=== PATIENT | male | born 1980 | race African-American/Black ===

== ENCOUNTER 2020-08-02 16:00 | Emergency (ER) | payer SELFPAY ==
[2020-08-02 16:05] VITALS: BP 154/108; PULSE 76; RESP 18; TEMP 36.9; O2SAT 99; BMI 33.2
--- NOTE | 2020-08-02 18:47 | ED_ITS ---
HPI - Back Pain/Injury General: Chief Complaint: Back Pain/Injury Stated Complaint: SEVERE BACK PAIN, CANNOT WALK Time Seen by Provider: 08/02/20 18:47 History of Present Illness: HPI Narrative: Patient is a 40-year-old male comes to the ED with acute on chronic lower back pain. Patient says symptoms started last night. He says the pain starts in his lower back and then radiates down into the left leg. Denies any injury to cause acute pain says he gets back pain that flares up like this on a lot of times depending on the weather. He has had pain like this in the past and he usually gets treated with some muscle relaxers steroids and meloxicam. Denies any bladder or bowel incontinence, pelvic anesthesia or any weakness to lower extremities. Associated symptoms: Deny abdominal pain, chills, dysuria, fatigue, fever(s), hematuria, nausea or vomiting Review of Systems Const: Denies: fever(s), chills or fatigue Eyes: Denies: change in vision or eye discomfort ENMT: Denies: throat pain, odynophagia, nasal discharge or nasal congestion Card: Denies: chest pain, palpitations, edema, swelling of feet/ankles, dyspnea on exertion or orthopnea Resp: Denies: dyspnea, productive cough or non-productive cough GI: Denies: abdominal pain, nausea, vomiting, diarrhea, constipation or hematochezia : Denies: flank pain, difficulty urinating, dysuria or hematuria Musc: Reports: back pain (Lower back pain acute on chronic. Pain radiating down left leg.); Denies: neck pain or extremity swelling Skin/Breast: Denies: rash or new lesions Neuro: Denies: headache(s), numbness in extremities or weakness in extremities Physical Exam Const: COMMON NORMALS: no acute distress, patient oriented x3 and alert GENERAL APPEARANCE: cooperative and comfortable HENMT: COMMON NORMALS: normocephalic HEAD & SCALP: normocephalic MOUTH: Normal oral and palatal mucosa present THROAT: posterior oropharynx normal and uvula midline Neck/C-Spine: COMMON NORMALS: supple GENERAL: Yes normal visual inspection Resp: COMMON NORMALS: normal respiratory effort, No retractions, No use of accessory muscles and clear to auscultation bilaterally AUSCULTATION: clear to auscultation bilaterally Cardio: COMMON NORMALS: regular rate, regular rhythm, S1 normal heart sound present, S2 normal heart sound present, No gallops present (Cardio), No clicks present (Cardio), No murmurs present (Cardio) and Peripheral pulses 2+ throughout RATE: regular rate RHYTHM: regular rhythm HEART SOUNDS: S1 normal heart sound present and S2 normal heart sound present PERIPHERAL PULSES: Peripheral pulses 2+ throughout GI: COMMON NORMALS: Normal to inspection, nondistended, normoactive bowel sounds present, Soft to palpation, non-tender and no masses PALPATION: Yes Soft to palpation : COMMON NORMALS: Yes no CVA tenderness BLADDER/KIDNEY EXAM: Yes no CVA tenderness Back/Pelvis: COMMON NORMALS: no CVA tenderness LUMBAR SPINE/LOWER BACK: Yes pain with ROM, No lumbar spinal tenderness and Yes paraspinal muscle tenderness Extremity: COMMON NORMALS: normal to inspection Neuro: COMMON NORMALS: patient oriented x3 and moves all extremities SENSORIUM/ORIENTATION: Yes alert Skin: GENERAL SKIN EXAM: dry skin Course Vital Signs: Vital signs: Vital Signs Temperature 98.5 F 08/02/20 16:05 Pulse Rate 70 08/02/20 19:27 Respiratory Rate 18 08/02/20 19:27 Blood Pressure 148/94 08/02/20 19:27 Pulse Oximetry 100 08/02/20 19:27 MDM - Back Pain/Injury MDM Narrative: Medical decision making narrative: Patient is a 40-year-old male comes to the ED with acute on chronic lower back pain. Denies any acute injury to cause pain. He says he has got pain radiating down left leg. Patient has no cauda equina symptoms. He was given dose of Toradol, Solu-Medrol and Norflex while here in the ED. Diagnosis of lumbar radiculopathy and discharged with a prescription for meloxicam, methylprednisolone and muscle relaxer. Return to ED precautions given. Follow-up with PCP in 7 to 10 days. Patient is to agree with plan. Discharge Plan Discharge Patient Disposition: Home Clinical Impression: Lumbar radiculopathy Condition: Stable Prescriptions: New Medrol (Kervin) 4 mg tablets,dose pack See Rx Instructions .ROUTE .COMPLEX Qty: 21 RF: 0 meloxicam 7.5 mg tablet 7.5 mg PO DAILY Qty: 30 RF: 0 Discharge Orders: Discharge ED (Routine); Ordered 08/02/20 Ordered By: Oswaldo Phipps Discharge Diet: Regular Discharge Activity: Increase activity as tolerated Patient Instructions: Diazepam (By mouth), Lumbar Radiculopathy (ED) Activity Restrictions/Additional Instructions: Follow-up with medical provider as directed in 7 to 10 days for reevaluation. Take medications as prescribed. Number the muscle relaxer prescribed can cause some drowsiness side effect so take at night before bed. If you are going to take during the day use with caution. Apply cold pack or heat on lower back, stretch daily and massage lower back muscles that help with symptoms. Return to the ER or your medical provider if condition worsens. Please read and understand discharge instructions. If any questions, please ask. Stand Alone Forms: Work/School Release Coding Level of Care Code ED Butter Grader for Tayla Prajapati Exam Comprehensive
[2020-08-02] MEDS: ketorolac 60 mg/2 mL INJ IM (19:08)
[2020-08-02] MEDS: orphenadrine 30 mg/mL Inj 2 mL 60 MG IM (19:08)
[2020-08-02 19:27] VITALS: BP 148/94; PULSE 70; RESP 18; O2SAT 100
== END 2020-08-02 19:28 | disposition home or self-care (01) ==
PROVIDERS: Emergency Provider Physician Assistant
DX: M54.16 Radiculopathy, lumbar region (principal)
CPT/HCPCS: 12345; 96372; 99281; 99283; J1885; J2360; J2930

== ENCOUNTER → 2021-06-30 15:18 | Outpatient (BNVA) | payer OTHER, SELFPAY | PROVIDERS: Visit Provider Nurse Practitioner Family | DX: Z20.822 Contact with and (suspected) exposure to COVID-19 (principal) | CPT/HCPCS: 87635 ==

== ENCOUNTER 2022-07-10 14:28 | Emergency (ER) | payer OTHER, SELFPAY ==
[2022-07-10 14:32] VITALS: BP 121/91; PULSE 80; RESP 16; TEMP 36.6; O2SAT 100; BMI 39.1
--- NOTE | 2022-07-10 15:02 | XRR_ITS ---
PROCEDURE INFORMATION: Exam: XR Chest Exam date and time: 07/10/2022 3:37 PM Age: 42 years old Clinical indication: Cough TECHNIQUE: Imaging protocol: Radiologic exam of the chest. Views: 1 view. COMPARISON: No relevant prior studies available. FINDINGS: Lungs: Unremarkable. No consolidation. Pleural spaces: Unremarkable. No pleural effusion. No pneumothorax. Heart/Mediastinum: Unremarkable. No cardiomegaly. Bones/joints: Unremarkable. XR/XR chest 1V portable [id number] IMPRESSION: No acute findings.
--- NOTE | 2022-07-10 15:45 | W.ED.GENADLT ---
Documented by User: Melany Rodriguez 07/11/22 08:54 HPI - General Adult General: Chief complaint: General Medical Stated complaint: Pain on left side, no strength Time Seen by Provider: 07/10/22 15:39 History of Present Illness: Pt has been unwell x 2 weeks, weak and flu like symptoms Associated symptoms: Reports dyspnea, headache(s) and malaise Review of Systems General: Reports: 10 or more systems reviewed and unremarkable except in HPI and below Const: Reports: fever(s), chills, body aches, fatigue, malaise and daytime sleepiness Resp: Reports: dyspnea, productive cough, pain on inspiration and chest congestion Musc: Reports: extremity pain (left arm ) and muscle weakness Neuro: Reports: headache(s) and weakness in extremities PFSH ED PFSH: Medical History No pertinent past medical history Surgical History No pertinent past surgical history Physical Exam Const: COMMON NORMALS: no acute distress, patient oriented x3, no limitations and alert GENERAL APPEARANCE: cooperative and comfortable ORIENTATION/CONSCIOUSNESS: Yes awake, Yes oriented to person, Yes oriented to place and Yes oriented to time HENMT: COMMON NORMALS: normocephalic, atraumatic, external ears normal, EAC's normal, TM's normal bilaterally and Normal external nose present HEAD & SCALP: normal to inspection, normocephalic and atraumatic FACE & SINUS: normal facial exam, sinuses nontender and face symmetric NOSE: Normal external nose present, Normal nares present and No nasal discharge present EXTERNAL EAR: Yes external ears normal EXTERNAL AUDITORY CANAL: EAC's normal TYMPANIC MEMBRANE: TM's normal bilaterally MOUTH: Normal oral and palatal mucosa present, lip normal and tongue normal THROAT: posterior oropharynx normal, tonsils normal and uvula midline Eye: COMMON NORMALS: Equal, round and reactive pupils present, EOMs intact bilaterally and conjunctivae normal GENERAL EYE: appearance normal, both eyes and all related structures and normal light reflex EYELID: eyelids normal CONJUNCTIVA: Yes conjunctivae normal PUPIL: Yes Equal, round and reactive pupils present EOM: Yes EOM abnormal DIRECT OPHTHALMOSCOPY: Yes normal light reflex Neck/C-Spine: COMMON NORMALS: full ROM, no lymphadenopathy, supple, no meningeal signs, no JVD and Thyroid normal GENERAL: Yes normal visual inspection THYROID: Thyroid normal CERVICAL SPINE: Yes cervical ROM normal and Yes normal cervical lordosis Lymph: LYMPHATIC: no lymphadenopathy noted Chest: COMMONS NORMALS: normal inspection of the chest and normal palpation of entire chest wall Resp: COMMON NORMALS: normal respiratory effort, No retractions and clear to auscultation bilaterally AUSCULTATION: clear to auscultation bilaterally Cardio: COMMON NORMALS: no JVD, regular rate, regular rhythm, S1 normal heart sound present, S2 normal heart sound present, No gallops present (Cardio), No clicks present (Cardio), No murmurs present (Cardio), No rub (Cardio) and Peripheral pulses 2+ throughout RATE: regular rate RHYTHM: regular rhythm HEART SOUNDS: S1 normal heart sound present and S2 normal heart sound present PERIPHERAL PULSES: Peripheral pulses 2+ throughout GI: COMMON NORMALS: Normal to inspection, nondistended, normoactive bowel sounds present, Soft to palpation, non-tender and no masses PALPATION: Yes Soft to palpation : COMMON NORMALS: Yes no CVA tenderness BLADDER/KIDNEY EXAM: Yes no CVA tenderness Back/Pelvis: COMMON NORMALS: no CVA tenderness, thoracic and lumbar spine normal to inspection, no thoracic nor lumbar tenderness and thoraco-lumbar ROM normal Extremity: COMMON NORMALS: normal to inspection, full ROM, capillary refill normal, no joint enlargement, no clubbing, cyanosis or edema, no calf tenderness and no pedal edema GENERAL: Yes normal exam except as noted Neuro: COMMON NORMALS: patient oriented x3, moves all extremities, no focal motor deficits, no sensory deficits noted and gait normal SENSORIUM/ORIENTATION: Yes alert, Yes oriented to person, Yes oriented to place and Yes oriented to time MENINGEAL SIGNS: Yes no meningeal signs Psych: COMMON NORMALS: mental status grossly normal, Normal thought process present, cooperative, normal affect, speech normal and activity/motor behavior normal SPEECH: Yes normal speech THOUGHT PROCESS: Normal thought process present Skin: COMMON NORMALS: no rashes or lesions noted, no wounds and turgor normal GENERAL SKIN EXAM: no rashes or lesions noted and turgor normal Course ED course: Pt presents to ER with complaints of feeling unwell x 2 weeks. He states he feels weak and has intermittent flu like symptoms. CXR ordered and covid swab. Reevaluation(s): Reevaluation #1: CXR is negative. Awaiting swabs. Pt also notes pain radiating down left arm. He was recently exposed to Flu A and based off of his symptoms I want to ensure no cardiomyopathy post viral illness is occuring. 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 Vital Signs: Vital signs: Vital Signs Temperature 97.9 F 07/10/22 14:32 Pulse Rate 74 07/10/22 18:57 Respiratory Rate 18 07/10/22 18:57 Blood Pressure 141/62 07/10/22 18:57 Pulse Oximetry 98 07/10/22 18:57 Oxygen Delivery Me thod 07/10/22 14:32 MDM - General Adult Lab Data 07/10/22 17:33 07/10/22 17:33 Radiology Impressions Chest X-Ray 07/10/22 15:02 IMPRESSION: No acute findings. Laboratory Results WBC 5.6 10^3/uL (4.0-10.0) 07/10/22 17:33 RBC 6.08 10^6/uL (4.1-5.3) H 07/10/22 17:33 Hgb 16.6 g/dL (11.7-16.6) 07/10/22 17:33 Hct 50.7 % (42.0-52.0) 07/10/22 17:33 MCV 83.4 fl (80-94) 07/10/22 17:33 MCH 27.3 pg (28.0-34.0) L 07/10/22 17:33 MCHC 32.7 g/dL (30.0-36.0) 07/10/22 17:33 RDW 13.5 % (12.1-15.1) 07/10/22 17:33 Plt Count 208 10^3/cmm (130-400) 07/10/22 17:33 MPV 10.6 fL (7.4-10.4) H 07/10/22 17:33 Neut % (Auto) 48.2 % 07/10/22 17:33 Lymph % (Auto) 38.4 % 07/10/22 17:33 Clarke % (Auto) 11.7 % 07/10/22 17:33 Eos % (Auto) 1.1 % 07/10/22 17:33 Baso % (Auto) 0.4 % 07/10/22 17:33 Neut # (Auto) 2.71 10^3/uL (1.8-7.7) 07/10/22 17:33 Lymph # (Auto) 2.2 10^3/uL (0.8-4.8) 07/10/22 17:33 Clarke # (Auto) 0.7 10^3/uL (0.2-0.9) 07/10/22 17:33 Eos # (Auto) 0.1 10^3/uL (0.0-0.8) 07/10/22 17:33 Baso # (Auto) 0.0 10^3/uL (0.0-0.1) 07/10/22 17:33 Nucleated RBC % (auto) 0 % 07/10/22 17:33 Nucleated RBCs # 0.0 /100WBC 07/10/22 17:33 Sodium 129 mmol/L (136-145) L 07/10/22 17:33 Potassium 3.7 mmol/L (3.5-5.1) 07/10/22 17:33 Chloride 93 mmol/L (98-107) L 07/10/22 17:33 Carbon Dioxide 26 mmol/L (22-29) 07/10/22 17:33 Anion Gap 13.7 (5-19) 07/10/22 17:33 BUN 9 mg/dL (6-20) 07/10/22 17:33 Creatinine 0.8 mg/dL (0.7-1.2) 07/10/22 17:33 GFR Calculation 128.3 mL/min (90-130) 07/10/22 17:33 Glucose 84 mg/dL (65-115) 07/10/22 17:33 Calculated Osmolality 266 mOsm/kg (285-295) L 07/10/22 17:33 Calcium 9.6 mg/dL (8.5-10.5) 07/10/22 17:33 Total Bilirubin 0.2 mg/dL (0.15-1.2) 07/10/22 17:33 AST 20 U/L (0-40) 07/10/22 17:33 ALT 26 U/L (0-41) 12/11/22 17:33 Alkaline Phosphatase 64 U/L (40-130) 07/10/22 17:33 CK-MB (CK-2) 1.0 ng/mL (0-10.4) 07/10/22 17:33 Troponin T Gen 5 ng/L 6 ng/L (0-15) 07/10/22 17:33 C-Reactive Protein 33.9 mg/L (0.0-4.9) H 07/10/22 17:33 Total Protein 8.9 g/dL (6.6-8.7) H 07/10/22 17:33 Albumin 4.4 g/dL (3.5-5.2) 07/10/22 17:33 Globulin 4.5 g/dL (1.3-4.6) 07/10/22 17:33 Influenza Type A Ag negative (Negative) 07/10/22 16:32 Influenza Type B Ag negative (Negative) 07/10/22 16:32 SARS-CoV-2 Ag (Rapid) positive (Negative) 07/10/22 16:32 Discharge Plan Discharge Patient Disposition: Home Clinical Impression: COVID-19 Condition: Stable Prescriptions: New methylprednisolone 4 mg tablets,dose pack See Rx Instructions .ROUTE .COMPLEX Qty: 21 0RF Rx Instructions: orally per package directions No Action cyclobenzaprine 10 mg tablet 10 mg PO BID PRN (Reason: muscle spasm) Qty: 20 0RF celecoxib 100 mg capsule 100 mg PO BID PRN (Reason: pain) Qty: 20 0RF Discharge Orders: Discharge ED (Routine); Ordered 07/10/22 Ordered By: Oswaldo Phipps Discharge Diet: Regular Discharge Activity: Increase activity as tolerated Patient Instructions: COVID-19 (Coronavirus Disease 2019) (ED) Activity Restrictions/Additional Instructions: Follow-up with medical provider as directed in the next 5 to 7 days for reevaluation. Take medications as prescribed. Make sure you drink plenty of fluids and stay hydrated. Take [id number] Tylenol or Motrin for any pain or fevers. Return to the ER or your medical provider if condition worsens. Please read and understand discharge instructions. Thank you for choosing [facility] for your healthcare needs today. Please realize this is an emergency room and that we are providing you with a medical screening exam and this may not be complete and all inclusive of all the testing and or work up that you may need to determine your ailment or severity of your illness. It is very important that you follow up as instructed or that you return to the Emergency Department should you have concerns or if your condition changes or worsens in any way. Sign Out Sign Out Data: Patient Sign Out occurred on 07/10/22 at 17:10. Patient's care was discussed, and care was transferred from to TERRENCE Lewis. Coding Level of Care Code ED Dye Operator for Chg Fwd Exam Comprehensive Documented by User: TERRENCE Lewis 07/10/22 22:17 HPI - General Adult General: Chief complaint: General Medical Stated complaint: Pain on left side, no strength Time Seen by Provider: 07/10/22 15:39 History of Present Illness: Pt has been unwell x 2 weeks, weak and flu like symptoms. He is also complaining of having some pain and aching in his left shoulder that radiates down to his left arm. Denies any chest pain. [facility] ED PFSH: Medical History No pertinent past medical history Surgical History No pertinent past surgical history Course Vital Signs: Vital signs: Vital Signs Temperature 97.9 F 07/10/22 14:32 Pulse Rate 74 07/10/22 18:57 Respiratory Rate 18 07/10/22 18:57 Blood Pressure 141/62 07/10/22 18:57 Pulse Oximetry 98 07/10/22 18:57 Oxygen Delivery Me thod 07/10/22 14:32 MDM - General Adult Medical Decision Making Patient is a 40-year-old male comes to the ED with upper respiratory symptoms. He was also complaining of some left shoulder and left arm pain but denies any injury. Vitals are stable. Exam of patient is benign he appears nontoxic and in no acute distress or pain. Chest x-ray shows no acute findings. CBC and CMP were unremarkable. Troponin negative. EKG was unremarkable. Patient tested positive for COVID-19. He was given IV fluids and Toradol here in the ED and his symptoms improved. He was stable for discharge home diagnosed with COVID-19. He was sent home with a prescription for Medrol Dosepak. Follow-up with PCP in the next week for reevaluation. Return to ED precautions given. Patient understood and agreed with plan. Lab Data I reviewed the patient's lab results. 07/10/22 17:33 07/10/22 17:33 Radiology Impressions Chest X-Ray 07/10/22 15:02 IMPRESSION: No acute findings. Laboratory Results WBC 5.6 10^3/uL (4.0-10.0) 07/10/22 17: RBC 6.08 10^6/uL (4.1-5.3) H 07/10/22 17:33 Hgb 16.6 g/dL (11.7-16.6) 07/10/22 17:33 Hct 50.7 % (42.0-52.0) 07/10/22 17:33 MCV 83.4 fl (80-94) 07/10/22 17:33 MCH 27.3 pg (28.0-34.0) L 07/10/22 17:33 MCHC 32.7 g/dL (30.0-36.0) 07/10/22 17:33 RDW 13.5 % (12.1-15.1) 07/10/22 17:33 Plt Count 208 10^3/cmm (130-400) 07/10/22 17:33 MPV 10.6 fL (7.4-10.4) H 07/10/22 17:33 Neut % (Auto) 48.2 % 07/10/22 17:33 Lymph % (Auto) 38.4 % 07/10/22 17:33 Clarke % (Auto) 11.7 % 07/10/22 17:33 Eos % (Auto) 1.1 % 07/10/22 17:33 Baso % (Auto) 0.4 % 07/10/22 17:33 Neut # (Auto) 2.71 10^3/uL (1.8-7.7) 07/10/22 17:33 Lymph # (Auto) 2.2 10^3/uL (0.8-4.8) 07/10/22 17:33 Clarke # (Auto) 0.7 10^3/uL (0.2-0.9) 07/10/22 17:33 Eos # (Auto) 0.1 10^3/uL (0.0-0.8) 07/10/22 17:33 Baso # (Auto) 0.0 10^3/uL (0.0-0.1) 07/10/22 17:33 Nucleated RBC % (auto) 0 % 07/10/22 17:33 Nucleated RBCs # 0.0 /100WBC 07/10/22 17:33 Sodium 129 mmol/L (136-145) L 07/10/22 17:33 Potassium 3.7 mmol/L (3.5-5.1) 07/10/22 17:33 Chloride 93 mmol/L (98-107) L 07/10/22 17:33 Carbon Dioxide 26 mmol/L (22-29) 07/10/22 17:33 Anion Gap 13.7 (5-19) 07/10/22 17:33 BUN 9 mg/dL (6-20) 07/10/22 17:33 Creatinine 0.8 mg/dL (0.7-1.2) 07/10/22 17:33 GFR Calculation 128.3 mL/min (90-130) 07/10/22 17:33 Glucose 84 mg/dL (65-115) 07/10/22 17:33 Calculated Osmolality 266 mOsm/kg (285-295) L 07/10/22 17:33 Calcium 9.6 mg/dL (8.5-10.5) 07/10/22 17:33 Total Bilirubin 0.2 mg/dL (0.15-1.2) 07/10/22 17:33 AST 20 U/L (0-40) 07/10/22 17:33 ALT 26 U/L (0-41) 07/10/22 17:33 Alkaline Phosphatase 64 U/L (40-130) 07/10/22 17:33 CK-MB (CK-2) 1.0 ng/mL (0-10.4) 07/10/22 17:33 Troponin T Gen 5 ng/L 6 ng/L (0-15) 07/10/22 17:33 C-Reactive Protein 33.9 mg/L (0.0-4.9) H 07/10/22 17:33 Total Protein 8.9 g/dL (6.6-8.7) H 07/10/22 17:33 Albumin 4.4 g/dL (3.5-5.2) 07/10/22 17:33 Globulin 4.5 g/dL (1.3-4.6) 07/10/22 17:33 Influenza Type A Ag negative (Negative) 07/10/22 16:32 Influenza Type B Ag negative (Negative) 07/10/22 16:32 SARS-CoV-2 Ag (Rapid) positive (Negative) 07/10/22 16:32 Discharge Plan Discharge Patient Disposition: Home Clinical Impression: COVID-19 Condition: Stable Prescriptions: New methylprednisolone 4 mg tablets,dose pack See Rx Instructions .ROUTE .COMPLEX Qty: 21 0RF Rx Instructions: orally per package directions No Action cyclobenzaprine 10 mg tablet 10 mg PO BID PRN (Reason: muscle spasm) Qty: 20 0RF celecoxib 100 mg capsule 100 mg PO BID PRN (Reason: pain) Qty: 20 0RF Discharge Orders: Discharge ED (Routine); Ordered 07/10/22 Ordered By: Oswaldo Phipps Discharge Diet: Regular Discharge Activity: Increase activity as tolerated Patient Instructions: COVID-19 (Coronavirus Disease 2019) (ED) Activity Restrictions/Additional Instructions: Follow-up with medical provider as directed in the next 5 to 7 days for reevaluation. Take medications as prescribed. Make sure you drink plenty of fluids and stay hydrated. Take trib-nke-nhnysso Tylenol or Motrin for any pain or fevers. Return to the ER or your medical provider if condition worsens. Please read and understand discharge instructions. Thank you for choosing [facility] for your healthcare needs today. Please realize this is an emergency room and that we are providing you with a medical screening exam and this may not be complete and all inclusive of all the testing and or work up that you may need to determine your ailment or severity of your illness. It is very important that you follow up as instructed or that you return to the Emergency Department should you have concerns or if your condition changes or worsens in any way. Sign Out Sign Out Data: Patient Sign Out occurred on 07/10/22 at 17:10. Patient's care was discussed, and care was transferred from to TERRENCE Lewis. Coding Level of Care Code ED Dye Operator for Chg Fwd Exam Comprehensive
--- NOTE | 2022-07-10 16:49 | ECG_ITS ---
[facility] Test Date: 2022-07-10 Pat Name: Michael Vernon Department: Room: Gender: Male Resaw Feeder: : 1980 Requested By: Melany Rodriguez Order Number: [id number] Huy MD: Jose Monge M.D. Measurements Intervals [place] Rate: 75 P: 49 NE: 184 QRS: 74 QRSD: 95 T: 39 QT: 364 QTc: 407 Interpretive Statements SINUS RHYTHM NONSPECIFIC T-WAVE ABNORMALITY No previous ECG available for comparison Electronically Signed On 07-11-2022 15:01:08 PUBLIC AFFAIRS OFFICER by Jose Monge M.D. [id number]
[2022-07-10 17:07] LABS: SARS Covid-2 Antigen positive (Negative)
[2022-07-10 17:08] LABS: Influenza A by IFA negative (Negative); Influenza B by IFA negative (Negative)
[2022-07-10 17:47] LABS: Basophils % 0.4 %; Eosinophils # 0.1 10^3/uL (0.0-0.8); Eosinophils % 1.1 %; Hematocrit 50.7 % (42.0-52.0); Hemoglobin 16.6 g/dL (11.7-16.6); Lymphocytes # 2.2 10^3/uL (0.8-4.8); Lymphocytes % 38.4 %; Mean Corpuscular HGB Conc 32.7 g/dL (30.0-36.0); Mean Corpuscular Hemoglobin 27.3 pg (28.0-34.0); Mean Corpuscular Volume 83.4 fl (80-94); Mean Platelet Volume 10.6 fL (7.4-10.4); Monocytes # 0.7 10^3/uL (0.2-0.9); Monocytes % 11.7 %; Neutrophils # 2.71 10^3/uL (1.8-7.7); Neutrophils % 48.2 %; Nucleated Red Blood Cells % 0 %; Platelet Count 208 10^3/cmm (130-400); Red Blood Count 6.08 10^6/uL (4.1-5.3); Red Cell Distribution Width 13.5 % (12.1-15.1); White Blood Count 5.6 10^3/uL (4.0-10.0)
[2022-07-10] MEDS: ketorolac 30 mg/mL INJ IVP (17:56)
[2022-07-10] MEDS: sodium chloride 0.9% 500 ML IV (17:57)
[2022-07-10 18:18] LABS: Alanine Aminotransferase 26 U/L (0-41); Albumin Level 4.4 g/dL (3.5-5.2); Alkaline Phosphatase 64 U/L (40-130); Aspartate Amino Transferase 20 U/L (0-40); Blood Urea Nitrogen 9 mg/dL (6-20); C Reactive Protein 33.9 mg/L (0.0-4.9); Calcium 9.6 mg/dL (8.5-10.5); Carbon Dioxide 26 mmol/L (22-29); Chloride 93 mmol/L (98-107); Globulin 4.5 g/dL (1.3-4.6); Glomerular Filtration Rate 128.3 mL/min (90-130); Glucose 84 mg/dL (65-115); Osmolality Calculated 266 mOsm/kg (285-295); Sodium 129 mmol/L (136-145); Total Bilirubin 0.2 mg/dL (0.15-1.2); Total Protein 8.9 g/dL (6.6-8.7)
[2022-07-10 18:19] LABS: Troponin T (5th) Once 6 ng/L (0-15)
[2022-07-10 18:30] LABS: Anion Gap 13.7 (5-19); Potassium 3.7 mmol/L (3.5-5.1)
[2022-07-10 18:57] VITALS: BP 141/62; PULSE 74; RESP 18; O2SAT 98
== END 2022-07-10 18:58 | disposition home or self-care (01) ==
PROVIDERS: Emergency Medicine; Nurse Practitioner Family; Emergency Provider Physician Assistant
DX: U07.1 COVID-19 (principal); Z20.822 Contact with and (suspected) exposure to COVID-19
CPT/HCPCS: 71045; 80053; 82553; 84484; 85025; 86140; 87426; 87804; 93005; 96374; 99285; J1885; J7040

== ENCOUNTER 2022-07-11 01:07 | Emergency (ER) | payer OTHER, SELFPAY ==
[2022-07-11 01:17] VITALS: PULSE 84; RESP 20; TEMP 36.6; O2SAT 99; BMI 38.4
--- NOTE | 2022-07-11 01:27 | XRR_ITS ---
PROCEDURE INFORMATION: Exam: XR Left Shoulder Exam date and time: 07/11/2022 1:42 AM Age: 42 years old Clinical indication: Pain; Shoulder; Left; Additional info: Left shoulder pain TECHNIQUE: Imaging protocol: Radiologic exam of the Left shoulder. Views: 2 or more views. COMPARISON: CR (CHEST, ) 07/10/2022 3:37 PM FINDINGS: Bones/joints: Normal. No fracture or dislocation. Soft tissues: Normal. XR/XR shoulder LT min 2V* [id number] IMPRESSION: No acute findings.
--- NOTE | 2022-07-11 01:27 | ED_ITS ---
HPI - General Adult General: Chief complaint: General Medical Stated complaint: Shoulder and Neck Pain\Nose Bleed Time Seen by Provider: 07/11/22 01:22 History of Present Illness: Patient is a 42-year-old male comes to the ED for left shoulder pain. Patient was seen here in the ED for similar symptoms and upper respiratory infection symptoms on July 10. He has been having this left shoulder pain for several weeks. He describes it as being a burning pain that radiates down to his left arm. He rates the pain currently a 10 out of 10. Denies any known injury. Patient does state that he helps take care of his and has to do a lot of lifting with her because she is a paraplegic. Associated symptoms: Deny chest pain, dyspnea, headache(s), nausea, rash, palpitations or vomiting Review of Systems Const: Denies: fever(s), chills or fatigue Eyes: Denies: change in vision or eye discomfort ENMT: Denies: throat pain, odynophagia, nasal discharge or nasal congestion Card: Denies: chest pain, palpitations, edema, swelling of feet/ankles, dyspnea on exertion or orthopnea Resp: Denies: dyspnea, productive cough or non-productive cough GI: Denies: abdominal pain, nausea, vomiting, diarrhea, constipation or he matochezia : Denies: flank pain, difficulty urinating, dysuria or hematuria Musc: Reports: extremity pain (Left shoulder pain); Denies: neck pain, back pain or extremity swelling Skin/Breast: Denies: rash or new lesions Neuro: Denies: headache(s), numbness in extremities or weakness in extremities COUNT INCLUDES THE [facility] ED PFSH: Medical History No pertinent past medical history Surgical History No pertinent past surgical history Physical Exam Const: COMMON NORMALS: patient oriented x3 and alert GENERAL APPEARANCE: cooperative and comfortable HENMT: COMMON NORMALS: normocephalic HEAD & SCALP: normocephalic MOUTH: Normal oral and palatal mucosa present THROAT: posterior oropharynx normal and uvula midline Neck/C-Spine: COMMON NORMALS: supple GENERAL: Yes normal visual inspection Resp: COMMON NORMALS: normal respiratory effort, No retractions, No use of accessory muscles and clear to auscultation bilaterally AUSCULTATION: clear to auscultation bilaterally Cardio: COMMON NORMALS: regular rate, regular rhythm, S1 normal heart sound present, S2 normal heart sound present, No gallops present (Cardio), No clicks present (Cardio), No murmurs present (Cardio) and Peripheral pulses 2+ throughout RATE: regular rate RHYTHM: regular rhythm HEART SOUNDS: S1 normal heart sound present and S2 normal heart sound present PERIPHERAL PULSES: Peripheral pulses 2+ throughout GI: COMMON NORMALS: Normal to inspection, nondistended, normoactive bowel sounds present, Soft to palpation, non-tender and no masses PALPATION: Yes Soft to palpation : COMMON NORMALS: Yes no CVA tenderness BLADDER/KIDNEY EXAM: Yes no CVA tenderness Back/Pelvis: COMMON NORMALS: no CVA tenderness Extremity: COMMON NORMALS: normal to inspection, full ROM and capillary refill normal Neuro: COMMON NORMALS: patient oriented x3 SENSORIUM/ORIENTATION: Yes alert GAIT: Yes Normal gait present Skin: GENERAL SKIN EXAM: dry skin Course Vital Signs: Vital signs: Vital Signs Temperature 98 F 07/11/22 01:17 Pulse Rate 84 07/11/22 01:17 Respiratory Rate 20 H 07/11/22 01:17 Pulse Oximetry 99 07/11/22 01:17 [facility] - General Adult Medical Decision Making Patient is a 42-year-old male comes to the ED for left shoulder pain. Patient was seen here in the ED for similar symptoms and upper respiratory infection symptoms on July 10. He has been having this left shoulder pain for several weeks. He describes it as being a burning pain that radiates down to his left arm. He rates the pain currently a 10 out of 10. Denies any known injury. Vitals are stable. Exam is benign. X-ray of left shoulder showed no acute findings. Patient was diagnosed with left shoulder pain and was discharged home with a shoulder sling and a prescription for Celebrex and a muscle relaxer. Told to follow-up with PCP in the next week for reevaluation. Return to ED precautions given. Patient understood and agreed with plan. Lab Data Radiology Impressions Shoulder X-Ray 07/11/22 01:27 IMPRESSION: No acute findings. Discharge Plan Discharge Patient Disposition: Home Clinical Impression: Left shoulder pain Condition: Stable Prescriptions: New cyclobenzaprine 10 mg tablet 10 mg PO BID PRN (Reason: muscle spasm) Qty: 20 0RF celecoxib 100 mg capsule 100 mg PO BID PRN (Reason: pain) Qty: 20 0RF No Action methylprednisolone 4 mg tablets,dose pack See Rx Instructions .ROUTE .COMPLEX Qty: 21 0RF Rx Instructions: orally per package directions Discharge Orders: Discharge ED (Routine); Ordered 07/11/22 Ordered By: Oswaldo Phipps Discharge Diet: Regular Discharge Activity: Increase activity as tolerated Activity Restrictions/Additional Instructions: Follow-up with medical provider as directed. Take medications as prescribed. Wear shoulder sling to help with symptoms for the next couple days. Remember to take left arm out of sling multiple times a day and do some range of motion exercises to prevent any frozen shoulder. Return to the ER or your medical provider if condition worsens. Please read and understand discharge instructions. Thank you for choosing [facility] for your healthcare needs today. Please realize this is an emergency room and that we are providing you with a medical screening exam and this may not be complete and all inclusive of all the testing and or work up that you may need to determine your ailment or severity of your illness. It is very important that you follow up as instructed or that you return to the Emergency Department should you have concerns or if your condition changes or worsens in any way. Coding Level of Care Code ED Carding Machine Operator for Tayla Prajapati Exam Comprehensive
--- NOTE | 2022-07-11 02:25 | PC.NURSE ---
Applied sling to pt left upper extremity
== END 2022-07-11 02:26 | disposition home or self-care (01) ==
PROVIDERS: Emergency Provider Physician Assistant
DX: M25.512 Pain in left shoulder (principal)
CPT/HCPCS: 73030; 99283

== ENCOUNTER 2023-11-24 05:37 | Emergency (ER) | payer OTHER, SELFPAY ==
[2023-11-24 05:37] VITALS: BP 209/106; PULSE 61; RESP 20; TEMP 36.4; O2SAT 100; BMI 34.0
--- NOTE | 2023-11-24 05:41 | ED_ITS ---
Documented by User: Francesco Cook DO 11/24/23 20:02 HPI - Back Pain/Injury 2 General: Chief Complaint: Back Pain/Injury Stated Complaint: Back Pain Time Seen by Provider: 11/24/23 05:40 History of Present Illness: Patient presents to the ER by EMS with complaints of sudden onset right-sided flank abdominal pain that radiates around to the front. Patient says this started last night when he got up to try to pee but was unable to pee. Patient rated the pain a 10 out of 10. Patient says never had this pain before. Patient denies any nausea vomiting fevers chills. Review of Systems 2 General: Reports: 10 or more systems reviewed and unremarkable except in HPI and below PFSH ED 2 PFSH: Medical History No pertinent past medical history Surgical History No pertinent past surgical history Physical Exam 2 Const: COMMON NORMALS: no acute distress, average body habitus, patient oriented x3, no limitations, healthy appearing, alert and well nourished Neck/C-Spine: COMMON NORMALS: no JVD Chest: COMMONS NORMALS: normal inspection of the chest and normal palpation of entire chest wall Resp: COMMON NORMALS: normal respiratory effort, No retractions, No use of accessory muscles and clear to auscultation bilaterally AUSCULTATION: clear to auscultation bilaterally Cardio: COMMON NORMALS: no JVD, regular rate, regular rhythm, S1 normal heart sound present, S2 normal heart sound present, No gallops present (Cardio), No clicks present (Cardio), No murmurs present (Cardio) and No rub (Cardio) R ATE: regular rate RHYTHM: regular rhythm HEART SOUNDS: S1 normal heart sound present and S2 normal heart sound present GI: COMMON NORMALS: Normal to inspection, nondistended, normoactive bowel sounds present, Soft to palpation, No hepatosplenomegaly present and no masses; negative for non-tender (Mildly tender to palpate right flank right abdominal region) PALPATION: Yes Soft to palpation and Yes No hepatosplenomegaly present Neuro: COMMON NORMALS: patient oriented x3 SENSORIUM/ORIENTATION: Yes alert Course 2 Vital Signs: Vital signs: Vital Signs Temperature 97.6 F 11/24/23 05:37 Pulse Rate 88 11/24/23 08:41 Respiratory Rate 20 H 11/24/23 06:29 Blood Pressure 180/100 11/24/23 08:41 Pulse Oximetry 100 11/24/23 08:41 Oxygen Delivery Me thod Room Air 11/24/23 06:03 MDM - Back Pain/Injury Labs 11/24/23 05:45 11/24/23 05:45 Radiology Impressions Abdomen/Pelvis CT 11/24/23 06:24 IMPRESSION: Right renal obstructive uropathy secondary to distal ureterolithiasis. Laboratory Results WBC 8.41 10^3/uL (3.29-11.43) 11/24/23 05:45 RBC 5.54 10^6/uL (3.85-5.65) 11/24/23 05:45 Hgb 15.10 g/dL (11.27-16.99) 11/24/23 05:45 Hct 45.7 % (37-53) 11/24/23 05:45 MCV 82.5 fl (82-101) 11/24/23 05:45 MCH 27.3 pg (27-33) 11/24/23 05:45 MCHC 33.0 g/dL (30-55) 11/24/23 05:45 RDW 13.3 % (12.1-15.1) 11/24/23 05:45 Plt Count 263 10^3/cmm (157-399) 11/24/23 05:45 MPV 10.1 fL (7.4-10.4) 11/24/23 05:45 Neut % (Auto) 45.6 % 11/24/23 05:45 Lymph % (Auto) 45.3 % 11/24/23 05:45 [place] % (Auto) 6.9 % 11/24/23 05:45 Eos % (Auto) 1.8 % 11/24/23 05:45 Baso % (Auto) 0.2 % 11/24/23 05:45 Neut # (Auto) 3.83 10^3/uL (1.8-7.7) 11/24/23 05:45 Lymph # (Auto) 3.8 10^3/uL (0.8-4.8) 11/24/23 05:45 [place] # (Auto) 0.6 10^3/uL (0.2-0.9) 11/24/23 05:45 Eos # (Auto) 0.2 10^3/uL (0.0-0.8) 11/24/23 05:45 Baso # (Auto) 0.0 10^3/uL (0.0-0.1) 11/24/23 05:45 Nucleated RBC % (auto) 0 % 11/24/23 05:45 Nucleated RBCs # 0.0 /100WBC 11/24/23 05:45 Sodium 140 mmol/L (136-145) 11/24/23 05:45 Potassium 3.1 mmol/L (3.5-5.1) L 11/24/23 05:45 Chloride 103 mmol/L (98-107) 11/24/23 05:45 Carbon Dioxide 26 mmol/L (22-29) 11/24/23 05:45 Anion Gap 14.1 (5-19) 11/24/23 05:45 BUN 15 mg/dL (6-20) 11/24/23 05:45 Creatinine 1.0 mg/dL (0.7-1.2) 11/24/23 05:45 GFR Calculation 98.7 mL/min (90-130) 11/24/23 05:45 Glucose 139 mg/dL (65-115) H 11/24/23 05:45 Calculated Osmolality 293 mOsm/kg (285-295) 11/24/23 05:45 Calcium 8.7 mg/dL (8.5-10.5) 11/24/23 05:45 Total Bilirubin 0.3 mg/dL (0.15-1.2) 11/24/23 05:45 AST 21 U/L (0-40) 11/24/23 05:45 ALT 34 U/L (0-41) 11/24/23 05:45 Alkaline Phosphatase 54 U/L (40-130) 11/24/23 05:45 Total Protein 8.0 g/dL (6.6-8.7) 11/24/23 05:45 Albumin 4.4 g/dL (3.5-5.2) 11/24/23 05:45 Globulin 3.6 g/dL (1.3-4.6) 11/24/23 05:45 Lipase 31 U/L (13-60) 11/24/23 05:45 Urine Color Light yellow (Yellow) 11/24/23 07:35 Urine Appearance Clear (CLEAR) 11/24/23 07:35 Urine pH 7 (5-7) 11/24/23 07:35 Ur Specific [place] 1.015 (1.005-1.030) 11/24/23 07:35 Urine Protein Neg (Negative) 11/24/23 07:35 Urine Glucose (UA) Norm (Normal) 11/24/23 07:35 Urine Ketones 1+ (Negative) H 11/24/23 07:35 Urine Blood 3+ (Negative) H 11/24/23 07:35 Urine Nitrate Negative (Negative) 11/24/23 07:35 Urine Bilirubin Neg (Negative) 11/24/23 07:35 Urine Urobilinogen Neg mg/dL (Negative) 11/24/23 07:35 Ur Leukocyte Esterase Negative (Negative) 11/24/23 07:35 Urine RBC 10-15 /hpf (0-2) H 11/24/23 07:35 Urine WBC None /hpf (0-5) 11/24/23 07:35 Ur Squamous Epith Cells Rare /hpf (0-5) 11/24/23 07:35 Amorphous Sediment Not Reportable 11/24/23 07:35 Urine Bacteria None /hpf (NONE) 11/24/23 07:35 Discharge Plan Discharge Patient Disposition: Home Clinical Impression: Ureterolithiasis Condition: Stable Prescriptions: New hydrocodone-acetaminophen 5-325 mg tablet 1 tab PO Q6H PRN (Reason: pain) Qty: 20 0RF ondansetron 8 mg tablet,disintegrating 8 mg PO .q6 PRN (Reason: nausea and vomiting) Qty: 14 0RF Flomax 0.4 mg capsule 0.4 mg PO DAILY Qty: 30 0RF Discharge Orders: Discharge ED (Routine); Ordered 11/24/23 Ordered By: Elham Olivas Referrals: Buck Ricks MD [Referring] - 4-7 days (Call for appointment with urology. If fever (temp >100.4) develops return to the emergency room immediately, as this is an emergency. Take nausea medication prior to taking pain medications. You have been screened and evaluated and felt safe for discharge. Health conditions do change or evolve sometimes and as such it is important that you follow up with your Primary Doctor to be re checked, 3-5 days is a general good time frame for follow up. You are always welcome to return to the ED for re assessment if your symptoms are worsening or you have new concerns ) Discharge Diet: Usual diet Discharge Activity: Resume usual activity Patient Instructions: Opioid Safety, Pain Management Coding Level of Care Code ED Textile Supervisor for Anujag Fwd Documented by User: Elham Olivas MD 11/24/23 08:10 HPI - Back Pain/Injury 2 General: Chief Complaint: Back Pain/Injury Stated Complaint: Back Pain Time Seen by Provider: 11/24/23 05:40 [facility] ED 2 PFSH: Medical History No pertinent past medical history Surgical History No pertinent past surgical history Course 2 Vital Signs: Vital signs: Vital Signs Temperature 97.6 F 11/24/23 05:37 Pulse Rate 88 11/24/23 08:41 Respiratory Rate 20 H 11/24/23 06:29 Blood Pressure 180/100 11/24/23 08:41 Pulse Oximetry 100 11/24/23 08:41 Oxygen Delivery Me thod Room Air 11/24/23 06:03 MDM - Back Pain/Injury Medical Decision Making Medical decision making: Differential diagnosis including but not limited to and based on the above HPI, review of systems and physical exam: Ureterolithiasis. Urinary tract infection. Appendicitis. Cholecystis. Musculoskeletal / back pain. Pyelonephritis Orders placed to evaluate differential diagnosis based on the above differential, HPI and physical exam Lab Review: Laboratory results were reviewed and interpreted by myself the emergency room physician. Lab work is unremarkable other than some hematuria. CT of the abdomen shows a distal right kidney stone with hydroureter. I reviewed the patient's medical record. Reexamination: After Toradol and Dilaudid and fluids the patient says he feels quite a bit better. No increased work of breathing. No altered mental status. Labs 11/24/23 05:45 11/24/23 05:45 Radiology Impressions Abdomen/Pelvis CT 11/24/23 06:24 IMPRESSION: Right renal obstructive uropathy secondary to distal ureterolithiasis. Laboratory Results WBC 8.41 10^3/uL (3.29-11.43) 11/24/23 05:45 RBC 5.54 10^6/uL (3.85-5.65) 11/24/23 05:45 Hgb 15.10 g/dL (11.27-16.99) 11/24/23 05:45 Hct 45.7 % (37-53) 11/24/23 05:45 MCV 82.5 fl (82-101) 11/24/23 05:45 MCH 27.3 pg (27-33) 11/24/23 05:45 MCHC 33.0 g/dL (30-55) 11/24/23 05:45 RDW 13.3 % (12.1-15.1) 11/24/23 05:45 Plt Count 263 10^3/cmm (157-399) 11/24/23 05:45 MPV 10.1 fL (7.4-10.4) 11/24/23 05:45 Neut % (Auto) 45.6 % 11/24/23 05:45 Lymph % (Auto) 45.3 % 11/24/23 05:45 [place] % (Auto) 6.9 % 11/24/23 05:45 Eos % (Auto) 1.8 % 11/24/23 05:45 Baso % (Auto) 0.2 % 11/24/23 05:45 Neut # (Auto) 3.83 10^3/uL (1.8-7.7) 11/24/23 05:45 Lymph # (Auto) 3.8 10^3/uL (0.8-4.8) 11/24/23 05:45 [place] # (Auto) 0.6 10^3/uL (0.2-0.9) 11/24/23 05:45 Eos # (Auto) 0.2 10^3/uL (0.0-0.8) 11/24/23 05:45 Baso # (Auto) 0.0 10^3/uL (0.0-0.1) 11/24/23 05:45 Nucleated RBC % (auto) 0 % 11/24/23 05:45 Nucleated RBCs # 0.0 /100WBC 11/24/23 05:45 Sodium 140 mmol/L (136-145) 11/24/23 05:45 Potassium 3.1 mmol/L (3.5-5.1) L 11/24/23 05:45 Chloride 103 mmol/L (98-107) 11/24/23 05:45 Carbon Dioxide 26 mmol/L (22-29) 11/24/23 05:45 Anion Gap 14.1 (5-19) 11/24/23 05:45 BUN 15 mg/dL (6-20) 11/24/23 05:45 Creatinine 1.0 mg/dL (0.7-1.2) 11/24/23 05:45 GFR Calculation 98.7 mL/min (90-130) 11/24/23 05:45 Glucose 139 mg/dL (65-115) H 11/24/23 05:45 Calculated Osmolality 293 mOsm/kg (285-295) 11/24/23 05:45 Calcium 8.7 mg/dL (8.5-10.5) 11/24/23 05:45 Total Bilirubin 0.3 mg/dL (0.15-1.2) 11/24/23 05:45 AST 21 U/L (0-40) 11/24/23 05:45 ALT 34 U/L (0-41) 11/24/23 05:45 Alkaline Phosphatase 54 U/L (40-130) 11/24/23 05:45 Total Protein 8.0 g/dL (6.6-8.7) 11/24/23 05:45 Albumin 4.4 g/dL (3.5-5.2) 11/24/23 05:45 Globulin 3.6 g/dL (1.3-4.6) 11/24/23 05:45 Lipase 31 U/L (13-60) 11/24/23 05:45 Urine Color Light yellow (Yellow) 11/24/23 07:35 Urine Appearance Clear (CLEAR) 11/24/23 07:35 Urine pH 7 (5-7) 11/24/23 07:35 Ur Specific [place] 1.015 (1.005-1.030) 11/24/23 07:35 Urine Protein Neg (Negative) 11/24/23 07:35 Urine Glucose (UA) Norm (Normal) 11/24/23 07:35 Urine Ketones 1+ (Negative) H 11/24/23 07:35 Urine Blood 3+ (Negative) H 11/24/23 07:35 Urine Nitrate Negative (Negative) 11/24/23 07:35 Urine Bilirubin Neg (Negative) 11/24/23 07:35 Urine Urobilinogen Neg mg/dL (Negative) 11/24/23 07:35 Ur Leukocyte Esterase Negative (Negative) 11/24/23 07:35 Urine RBC 10-15 /hpf (0-2) H 11/24/23 07:35 Urine WBC None /hpf (0-5) 11/24/23 07:35 Ur Squamous Epith Cells Rare /hpf (0-5) 11/24/23 07:35 Amorphous Sediment Not Reportable 11/24/23 07:35 Urine Bacteria None /hpf (NONE) 11/24/23 07:35 All radiology interpretation(s) finalized by discharge Other Data Assessment and plan: Kidney stone -Dilaudid, Zofran and fluids - Discharged home - Discussed findings and plan with patient. Answered any questions. - All laboratory values were reviewed and interpreted personally by myself, the ER physician - All imaging was reviewed and interpreted personally by myself, the ER physician. - Evaluation and treatment of this problem were appropriate in the emergency setting Discharge Plan Discharge Patient Disposition: Home Clinical Impression: Ureterolithiasis Condition: Stable Prescriptions: New hydrocodone-acetaminophen 5-325 mg tablet 1 tab PO Q6H PRN (Reason: pain) Qty: 20 0RF ondansetron 8 mg tablet,disintegrating 8 mg PO .q6 PRN (Reason: nausea and vomiting) Qty: 14 0RF Flomax 0.4 mg capsule 0.4 mg PO DAILY Qty: 30 0RF Discharge Orders: Discharge ED (Routine); Ordered 11/24/23 Ordered By: Elham Olivas Referrals: Buck Ricks MD [Referring] - 4-7 days (Call for appointment with urology. If fever (temp >100.4) develops return to the emergency room immediately, as this is an emergency. Take nausea medication prior to taking pain medications. You have been screened and evaluated and felt safe for discharge. Health conditions do change or evolve sometimes and as such it is important that you follow up with your Primary Doctor to be re checked, 3-5 days is a general good time frame for follow up. You are always welcome to return to the ED for re assessment if your symptoms are worsening or you have new concerns ) Discharge Diet: Usual diet Discharge Activity: Resume usual activity Patient Instructions: Opioid Safety, Pain Management Coding Level of Care Code ED Textile Supervisor for Tayla Prajapati
[2023-11-24] MEDS: ketorolac 30 mg/mL INJ IVP (05:49)
[2023-11-24] MEDS: sodium chloride 0.9% 1,000 ML 999 ML IV ×2 (05:50→07:35)
[2023-11-24 05:51] LABS: Basophils % 0.2 %; Eosinophils # 0.2 10^3/uL (0.0-0.8); Eosinophils % 1.8 %; Hematocrit 45.7 % (37-53); Lymphocytes # 3.8 10^3/uL (0.8-4.8); Lymphocytes % 45.3 %; Mean Corpuscular Hemoglobin 27.3 pg (27-33); Mean Corpuscular Volume 82.5 fl (82-101); Mean Platelet Volume 10.1 fL (7.4-10.4); Monocytes # 0.6 10^3/uL (0.2-0.9); Monocytes % 6.9 %; Neutrophils # 3.83 10^3/uL (1.8-7.7); Neutrophils % 45.6 %; Nucleated Red Blood Cells % 0 %; Platelet Count 263 10^3/cmm (157-399); Red Blood Count 5.54 10^6/uL (3.85-5.65); Red Cell Distribution Width 13.3 % (12.1-15.1); White Blood Count 8.41 10^3/uL (3.29-11.43)
[2023-11-24] MEDS: hyDRALAzine 20 mg/mL INJ 1 mL IVP (05:51)
[2023-11-24 06:03] VITALS: BP 186/125; PULSE 71; RESP 20; O2SAT 100
--- NOTE | 2023-11-24 06:22 | PC.NURSE ---
Pain reassessment - pt still c/o 05/09 back/ abd pain post Toradol ivp. Provider notified and awaiting new orders.
[2023-11-24 06:23] LABS: Alanine Aminotransferase 34 U/L (0-41); Albumin Level 4.4 g/dL (3.5-5.2); Alkaline Phosphatase 54 U/L (40-130); Anion Gap 14.1 (5-19); Aspartate Amino Transferase 21 U/L (0-40); Blood Urea Nitrogen 15 mg/dL (6-20); Calcium 8.7 mg/dL (8.5-10.5); Carbon Dioxide 26 mmol/L (22-29); Chloride 103 mmol/L (98-107); Creatinine Clr Calc Pharmacy 113.3693; Globulin 3.6 g/dL (1.3-4.6); Glomerular Filtration Rate 98.7 mL/min (90-130); Glucose 139 mg/dL (65-115); Lipase 31 U/L (13-60); Osmolality Calculated 293 mOsm/kg (285-295); Potassium 3.1 mmol/L (3.5-5.1); Sodium 140 mmol/L (136-145); Total Bilirubin 0.3 mg/dL (0.15-1.2)
--- NOTE | 2023-11-24 06:24 | CTR_ITS ---
PROCEDURE INFORMATION: Exam: CT Abdomen And Pelvis Without Contrast Exam date and time: 11/24/2023 6:39 AM Age: 43 years old Clinical indication: Abdominal pain; Generalized TECHNIQUE: Imaging protocol: Computed tomography of the abdomen and pelvis without contrast. Radiation optimization: All CT scans at this facility use at least one of these dose optimization techniques: automated exposure control; mA and/or kV adjustment per patient size (includes targeted exams where dose is matched to clinical indication); or iterative reconstruction. COMPARISON: CR XR chest 1V portable [id number] 07/10/2022 3:37 PM RADIATION DOSE METRICS: Total DLP (mGy-cm): 1069.33 FINDINGS: Diaphragm: Small hiatal hernia. Liver: Normal. No mass. Gallbladder and bile ducts: Normal. No calcified stones. No ductal dilation. Pancreas: Normal. No ductal dilation. Spleen: Normal. No splenomegaly. Adrenal glands: Normal. No mass. Kidneys and ureters: Right perinephric stranding. Mild severity right collecting system hydroureteronephrosis. Calcified right distal ureter stone. Distal ureter stone measures 3 mm. Stomach and bowel: Unremarkable. No obstruction. No mucosal thickening. Appendix: Normal appendix. Intraperitoneal space: Unremarkable. No free air. No significant fluid collection. Vasculature: Unremarkable. No abdominal aortic aneurysm. Lymph nodes: Unremarkable. No enlarged lymph nodes. Urinary bladder: Unremarkable as visualized. Reproductive: Unremarkable as visualized. Bones/joints: Unremarkable. No acute fracture. Soft tissues: Umbilical hernia. CT/CT abdomen pelvis wo con [id number] IMPRESSION: Right renal obstructive uropathy secondary to distal ureterolithiasis.
[2023-11-24 06:29] VITALS: RESP 20
[2023-11-24] MEDS: HYDROmorphone 1 mg/mL INJ 1 mL IVP (06:29)
[2023-11-24 06:34] VITALS: BP 138/100; PULSE 75; O2SAT 100
[2023-11-24] MEDS: tamsulosin 0.4 mg Capsule 0.400000000000000022 MG PO (07:35)
[2023-11-24 07:56] LABS: Add Urine Culture? Yes; Add Urine Microscopic? YES; Bilirubin Urine Neg (Negative); Blood Urine 3+ (Negative); Glucose Urine UA Norm (Normal); Ketones Urine 1+ (Negative); Leukocyte Esterase Urine Negative (Negative); Nitrate Urine Negative (Negative); Protein Urine Neg (Negative); Specific Gravity, Urine 1.015 (1.005-1.030); Squamous Epithelial Cell Urine RARE /hpf (0-5); Urine Appearance Clear (CLEAR); Urine Color Light yellow (Yellow); Urobilinogen Urine Neg (Negative); pH Urine 7 (5-7)
[2023-11-24] MEDS: HYDROcodone-acetaminophen 10-325 mg Tablet 1 TAB PO (08:27)
[2023-11-24 08:41] VITALS: BP 180/100; PULSE 88; O2SAT 100
== END 2023-11-24 09:04 | disposition home or self-care (01) ==
PROVIDERS: Emergency Provider Emergency Medicine
DX: N20.1 Calculus of ureter (principal)
CPT/HCPCS: 51798; 74176; 80053; 81001; 83690; 85025; 87086; 96361; 96374; 96375; 99285; J0360; J1170; J1885; J7030

== ENCOUNTER 2025-07-23 17:43 | Emergency (ER) | payer BC, MEDICAID, SELFPAY ==
[2025-07-23 17:50] VITALS: BP 130/93; PULSE 112; TEMP 37.1; O2SAT 94
--- OUTSIDE RECORDS SUMMARY | 2025-07-23 17:50 | XMS_ITS | Data Portability ---
Author Organization ROYCE Rios [facility] Tammy Vasques [facility] Address [address] [address] Care Team Providers Care Director Biologics Name Role Phone LAURO SALVADOR Primary Care Provider Assessment Encounter Date Assessment Date Assessment LastModified by Organization Details LastModified Time 01/07/2025 01/07/2025 Patient is not had routine lab work done in quite some time so we will proceed with that. Encouraged the patient to increase his physical activity and eat a well-balanced diet. [email or web address] Not available 01/09/2025 14:46:10 Plan of Treatment Reminders Order Date Submit Date Provider Last Modified By Organization Details Last Modified Time Details Appointments None recorded. Lab CMP, serum or plasma 2024 025 [facility]), [address] [place] [address], [phone], 18:20:00 lipid panel, blood 2024 025 [facility]), [address] [place] [address], [phone], 18:20:04 CBC 2024 025 [facility]), [address] [place] [address], [phone], 18:11:05 Referral None recorded. Procedures None recorded. Surgeries None recorded. Imaging home sleep study 2024 025 [facility] (Scheduling Orders), [address] [place], [address], 12:33:08 MRI, lumbar spine, w/o contrast 2024 025 [facility] Imaging Orders, [address] [place], [address], 15:34:27 Medication Orders cyclobenzap rine 10 mg tablet 2024 025 [facility], [address], [place], [address], 17:31:48 trazodone 50 mg tablet 2024 025 [facility] [address], [address], [place], [address], 17:32:55 clindamycin HCl 300 mg capsule 2024 025 [facility], [address], [place], [address], 17:26:45 Patient TargetsNo targets recorded. Patient InstructionsNo instructions recorded. Reason for Referral None Reported. Results Created Date Observation Date Name Description Value Unit Range Abnormal Flag Note LastModifiedBy Organization Detail LastModifiedTime 01/08/2001/07/2025 CBC WBC 5.7 x10 4.5-10 .5 Not Available [facility] [address] [facility], [place], [address], 01/07/2025 18:11:05 01/08/20 25 01/07/2025 CBC RBC 5.24 x10 4.30-5 .90 Not Available [facility] [address] [facility], [place], [address], 01/07/2025 18:11:05 01/08/20 25 01/07/2025 CBC HGB 14.9 g/dL 13.5-1 8.0 Not Available [facility] [address] [facility], [place], [address], 01/07/2025 18:11:05 01/08/20 25 01/07/2025 CBC HCT 45.0 % 35.0-6 0.0 Not Available [facility] [address] [facility] 1, [place], [address], 01/07/2025 18:11:05 01/08/20 25 01/07/2025 CBC MCV 85.9 fL 80.0-9 9.9 Not Available [facility] [address] [facility], [place], [address], 01/07/2025 18:11:05 01/08/20 25 01/07/2025 CBC MCH 28.3 pg 27.0-3 2.0 Not Available [facility] [address] [facility], [place], [address], 01/07/2025 18:11:05 01/08/20 25 01/07/2025 CBC MCHC 33.0 g/dL 32.0-3 6.0 Not Available [facility] [address] [facility], [place], [address], 01/07/2025 18:11:05 01/08/20 25 01/07/2025 CBC RDW 13.9 % 11.5-1 4.5 Not Available [facility] [address] [facility], [place], [address], 01/07/2025 18:11:05 01/08/20 25 01/07/2025 CBC plt 216.1 x10 150.0- 451.0 Not Available [facility] [address] [facility], [place], [address], 01/07/2025 18:11:05 01/08/20 25 01/07/2025 CBC lymphocytes % 35.1 % 20.0-5 0.0 Not Available [facility] [address] [facility] 1, [place], [address], 01/07/2025 18:11:05 01/08/20 25 01/07/2025 CBC granulcytes % 51.5 % 30.0-7 0.0 Not Available [facility] [address] [facility] 1, [place], [address], 01/07/2025 18:11:05 01/08/20 25 01/07/2025 CBC monocytes % 9.5 % 2.0-16 .0 Not Available [facility] [address] [address], [place], [address], 01/07/2025 18:11:05 01/08/20 25 01/07/2025 CBC granulcytes# 3.0 x10 Not Caty ilable [facility] [address] [address], [place], [address], 01/07/2025 18:11:05 01/08/20 25 01/07/2025 CBC lymphocytes # 2.0 x10 Not Available [facility] [address] [address], [place], [address], 01/07/2025 18:11:05 01/08/20 25 01/07/2025 CBC monocytes # 0.5 x10 Not Avai lable [facility] [address] [address], [place], [address], 01/07/2025 18:11:05 01/08/20 25 01/07/2025 CMP (MALE ) glucose 98.0 mg/dL 60.0-9 9.0 Not Available [facility] [address] [facility], [place], [address], 01/07/2025 18:20:00 01/08/20 25 01/07/2025 CMP (MALE ) BUN (blood urea nitrogen) 14.0 mg/dL 10.0-2 6.0 Not Available [facility] [address] [facility] 1, [place], [address], 01/07/2025 18:20:00 01/08/20 25 01/07/2025 CMP (MALE ) creatinine (serum) 0.9 mg/dL 0.4-1. 5 Not Available [facility] [address] [facility], [place], [address], 01/07/2025 18:20:00 01/08/20 25 01/07/2025 CMP (MALE ) BUN/creatini ne ratio 15.56 ratio Not Available [facility] [address] [address], [place], [address], 01/07/2025 18:20:00 01/08/20 25 01/07/2025 CMP (MALE ) eGFR calculated 97.[address] [facility] [address] [address], [place], [address], 01/07/2025 18:20:00 01/08/20 25 01/07/2025 CMP (MALE ) total protein 8.0 g/dL 6.0-8. 5 Not Available [facility] [address] [address], [place], [address], 01/07/2025 18:20:00 01/08/20 25 01/07/2025 CMP (MALE ) total bilirubin 0.5 mg/dL 0.2-1. 3 Not Available [facility] [address] [address], [place], [address], 01/07/2025 18:20:00 01/08/20 25 01/07/2025 CMP (MALE ) albumin 4.4 g/dL 3.5-5. 5 Not Available [facility] [address] [facility] 1, [place], [address], 01/07/2025 18:20:00 01/08/20 25 01/07/2025 CMP (MALE ) globulin 3.6 calc Not Available [facility] [address] [facility] 1, [place], [address], 01/07/2025 18:20:00 01/08/20 25 01/07/2025 CMP (MALE ) AST (SGOT) 24.0 U/L 0.0-46 .0 Not Available [facility] [address] [address], [place], [address], 01/07/2025 18:20:00 01/08/20 25 01/07/2025 CMP (MALE ) altv (SGPT) 55.0 U/L 13.0-6 9.0 normal Not Available [facility] [address] [address], [place], [address], 01/07/2025 18:20:00 01/08/20 25 01/07/2025 CMP (MALE ) A/G ratio 1.2 ratio Not Available [facility] [address] [address], [place], [address], 01/07/2025 18:20:00 01/08/20 25 01/07/2025 CMP (MALE ) ALP phos 51.0 U/L 30.0-1 40.0 normal Not Available [facility] [address] [address], [place], [address], 01/07/2025 18:20:00 01/08/20 25 01/07/2025 CMP (MALE ) calcium 9.2 mg/dL 8.4-10 .5 Not Available [facility] [address] [facility] 1, [place], [address], 01/07/2025 18:20:00 01/08/20 25 01/07/2025 CMP (MALE ) sodium 138.0 mmol/ L 136.0- 145.0 Not Available [facility] [address] [facility] 1, [place], [address], 01/07/2025 18:20:00 01/08/20 25 01/07/2025 CMP (MALE ) potassium 4.0 mmol/ L 3.5-5. 1 Not Available [facility] [address] [facility], [place], [address], 01/07/2025 18:20:00 01/08/20 25 01/07/2025 CMP (MALE ) chloride 105.0 mmol/ L 98.0-1 10.0 normal Not Available [facility] [address] [facility] 1, [place], [address], 01/07/2025 18:20:00 01/08/20 25 01/07/2025 CMP (MALE ) C02 26.0 mmol/ L 22.0-3 1.0 Not Available [facility] [address] [facility] 1, [place], [address], 01/07/2025 18:20:00 01/08/20 25 01/07/2025 CMP (MALE ) anion gap 7.0 calc Not Available [facility] [address] [facility] 1, [place], [address], 01/07/2025 18:20:00 01/08/20 25 01/07/2025 CMP (MALE ) osmolality 285.6 calc Not Available [facility] [address] [facility], [place], [address], 01/07/2025 18:20:00 01/08/20 25 01/07/2025 LIPID PROFI LE (MALE ) cholesterol 210.0 mg/dL 0.0-20 0.0 high Not Available [facility] [address] [facility] 1, [place], [address], 01/07/2025 18:20:04 01/08/20 25 01/07/2025 LIPID PROFI LE (MALE ) trig 87.0 mg/dL 0.0-15 0.0 Not Available [facility] [address] [facility] 1, [place], [address], 01/07/2025 18:20:04 01/08/20 25 01/07/2025 LIPID PROFI LE (MALE ) HDL - direct 38.0 mg/dL >40.[address] [facility] [address] [facility] 1, [place], [address], 01/07/2025 18:20:04 01/08/20 25 01/07/2025 LIPID PROFI LE (MALE ) VLDL - direct 17.4 mg/dL Not Available [facility] [address] [facility] 1, [place], [address], 01/07/2025 18:20:04 01/08/20 25 01/07/2025 LIPID PROFI LE (MALE ) LDL - direct 154.6 mg/dL 0.0-13 0.0 high Not Available [facility] [address] [facility] 1, [place], [address], 01/07/2025 18:20:04 Result Notes None recorded. Problems Name Problem SNOMED Code Status Onset Date Resolution Date Notes Provider Name and Address Organization Details Recorded Time Bacterial folliculitis 577201348 Active 2024 Lauro Salvador MD [address] [place], [address], [facility] 5 17:23:02 Chronic low back pain 442600575 Active 2024 Lauro Salvador MD [address] [place] [address], [address], [facility] 17:27:35 Sleep apnea 26575040 Active 2024 Lauro Salvador MD [address] [place] [address], [address], [facility] 17:31:27 Insomnia 144259426 Active 2024 Lauro Salvador MD [address] [place] [address], [address], [facility] 17:32:31 Obesity 252725854 Active 2024 Lauro Salvador MD [address] [place] [address], [address], [facility] 17:34:06 Problem Notes None recorded. Medical Equipment None Reported. Allergies No known drug allergies Medications Name Sig Start Date Stop Date Status Note LastModified by Organization Details LastModified Time cyclobenzaprine 10 mg tablet Take 1 tablet 3 times a day by oral route. 2024 active Not Available Not Available Not Avai lable clindamycin HCl 300 mg capsule Take 1 capsule every 6 hours by oral route. 2024 active Not Available Not Available Not Avai lable trazodone 50 mg tablet TAKE 1 TABLET BY MOUTH ONCE DAILY active Not Available Not Available No t Available oxycodone-aceta minophen 5 mg-325 mg tablet Take 1 tablet every 6 hours by oral route as needed. active Not Available Not Available No t Available magnesium oxide 400 mg (241.3 mg magnesium) tablet Take 1 tablet every day by oral route for 7 days. active Not Available Not Available No t Available celecoxib 100 mg capsule Take 1 capsule twice a day by oral route for 7 days. active Not Available Not Available No t Available Vitals Date Recorded Body weight Body mass index (BMI) Body height Body temperature Oxygen saturation Heart rate Systolic And Diastolic Provider Name and Address Organization Details Last Updated DateTime 994009. 83 g 38.1 kg/m2 175.26 cm 97.7 [degF] 99 % 85 /min 126/88 mm[Hg] Formerly [facility] 16:55:18 Social History Question Answer Notes LastModified by [employer] Details LastModified Time Tobacco Smoking Status Current Every Day Smoker [facility] 01/07/2025 17:08:26 What Is Your Level Of Caffeine Consumption? Heavy Information not available 01/07/2025 Which Illicit Or Recreational Drugs Have You Used? Marijuana [email or web address] Information not available 01/07/2025 What Was The Date Of Your Most Recent Tobacco Screening? 01/07/2025 [email or web address] Information not available 01/07/2025 Sex: Unknown Functional Status Question Answer Note LastModified by [employer] Details LastModified Time Do you use any illicit or recreational drugs? Yes [email or web address] Information not available 01/07/2025 What is your level of alcohol consumption? Occasional [email or web address] Information not available 01/07/2025 Mental Status None recorded. Family History Nothing Reported. Medical History No medical history recorded. Immunizations Vaccine Type Date Status Note Provider Nam e and Address Organization Details Recorded Time COVID-19, mRNA, LNP-S, PF, 30 mcg/0.3 mL dose 08/28/2020 completed Not Available [facility] 16:50:01 Past Encounters Encounter ID Performer Location Encounter Start Date Encounter Closed Date Diagnosis/Indication Diagnosis SNOMED-CT Code Diagnosis ICD10 Code Diagnosis IMO Codes Diagnosis Note [id number] Lauro Salvador MD [facility] ([facility]) [address] [place] [address] 01/07/2025 16:46:54 01/08/2025 10:37:50 Bacterial folliculitis 932102673 L73.8 23522 The patient does have recurrent bacterial infection since associated with pores/foll icles. We will treat with clindamyci n and Hibiclens. Issue could be secondary be related to very oily skin and if this does not improve his symptoms then we would recommend dermatolog y eval and treat. Chronic low back pain 27 5722593 M54.42 M54.41 G89.29 [id number] Patient has having recurrent low back pain. Patient has tried home stretches and exercises over the last several months that has not had improvemen t in his pain. Patient states that the pain goes going up both legs and would like to figure out what is going on to treated appropriat [email or web address]. Will proceed with MRI. Sydnie cadena provided to help with pain relief. Sleep apnea 46806585 G47 .30 [id number] Patient does wake up gasping for air and has many risk factors concerning for sleep apnea. Recommend the patient proceed with home sleep study. Insomnia 451344935 G47.0 0 [id number] Will provide trazodone to help with sleep as he does have trouble falling asleep. Obesity 006549552 E66.9 [id number] Health Concerns Section Related Observation LastModified by Organization Detai ls LastModified Time None Recorded Concern Status LastModified by Organization Details LastModified Time None Recorded Advance Directives Directive None Recorded Payers Insurance Date Sequence Insurance Name Policy Number Policy [place] Covered Member ID [place] Member ID Guarantor Name 02/20/2025 1 [employer] [place] [place] (MEDICAID REPLACEMENT - HMO) [id number] Michael Vernon [id number] Michael Vernon Notes Date Note Type Note Provider Name and Address Organization Details Recorded Time 01/07/2025 text/html Annual WellnessReported by PatientSocial/Behavior al HistoryFor diet and nutrition, patient reportshigh caloric intakeandhigh carbohydrate meals. For fracture risk, patient reportshistory of fractures(right ankle broken). For physical activity, patient reportsdoes not exercise on a regular basisanddecreased physical activity. For additional lifestyle factors, patient reportstobacco use.Mental Status:For depression risk, patient reportsfeels sad, empty, or tearful,loss of interest in activities,sleep disturbances or insomnia,agitated, andhistory of depression(pt lost march 2024).Functional AbilityFor hearing, patient reportsno loss of hearing. For vision, patient reportsno vision problems. Pt would like to establish care:Pt has knots under his eyelids that swell with yellow purulent that smells. This location is not painful. Pt states he had stitches in both his eye lids as an adolescent.He gets the bumps/knots on his thighs, groins, pubic hair line. These areas are more sensitive and painful when the bumps swell. Pt states he 'pops' the bumps himself. Patient admits that he has very oily skin.He was seen at [facility] on 12/24/24 for severe back pain, DX with sciatica. He has burning sensations daily and varies with shooting pains in his legs and in his shoulder blades. It effects his mobility. Lauro Salvador MD [address] [place] [address], [phone], [facility] 01/09/2025 14:46:28
--- OUTSIDE RECORDS SUMMARY | 2025-07-23 17:50 | XMS_ITS | Clinical Summary ---
Author Organization [facility] Address [address] [address] Phone Care Team Providers Care Benzene Operator Name Role Phone Unavailable Primary Care Provider Unavailabl e Allergies No known active allergies Medications acetaminophen/dp -hydramine (HEADACHE RELIEF PM ORAL) Take by mouth late in the day. Active lecithin/folic acid/Bs-C/hrb10 (ONE-A-DAY TENSION ORAL) Take by mouth late in the day. Active HYDROcodone-acet aminophen (NORCO) 5-325 mg tablet Take 1 Tablet by mouth every 4 hours as needed for Pain, Moderate. Active omeprazole (PriLOSEC) 40 mg Capsule, Delayed Release(E.C.) Take 40 mg by mouth daily. Active DM/p-ephed/aceta minoph/doxylam (NYQUIL ORAL) Take 30 mL by mouth 1 time daily as needed. Active cyclobenzaprine (FLEXERIL) 10 mg tablet Take 1 Tablet (10 mg) by mouth 3 times daily as needed for Spasm. 21 Tablet 09/06/2019 Active naproxen (NAPROSYN) 500 mg tablet Take 1 Tablet (500 mg) by mouth 2 times daily with meals. 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 Gender Identity Not on file Sexual Orientation Not on file Last Filed Vital Signs Vital Sign Reading Time Taken Comments Blood Pressure 159/106 09/06/2019 7:37 PM BISTRO ATTENDANT Pulse - - Temperature 36.6 C (97.9 F) 09/06/2019 7:37 PM BISTRO ATTENDANT Respiratory Rate 16 09/06/2019 7:37 PM BISTRO ATTENDANT Oxygen Saturation 100% 09/06/2019 7:37 PM BISTRO ATTENDANT Inhaled Oxygen Concentration - - Weight 105.6 kg (232 lb 14.4 oz) 09/06/2019 5:20 PM BISTRO ATTENDANT Height 175.3 cm (5' 9 ) 09/06/2019 5:20 PM BISTRO ATTENDANT Body Mass Index 34.39 09/06/2019 5:20 PM BISTRO ATTENDANT Plan of Treatment Health Maintenance Due Date Last Done Comments DTAP/TDAP/TD VACCINES (1 - Tdap) 02/05/1999 HEPATITIS B VACCINES (1 of 3 - 19+ 3-dose series) 03/1999 COLORECTAL SCREENING 02/05/2025 Colorectal Cancer Screening 02/05/2025 FIT-DNA Q 3 years 02/05/2025 FIT/FOBT Q 1 year 02/05/2025 Flex Sig/CT Colonography Q 5 years 02/05/2025 INFLUENZA VACCINE (#1) 2025 HPV VACCINES (No Doses Required) Completed 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
--- OUTSIDE RECORDS SUMMARY | 2025-07-23 17:50 | XMS_ITS | Clinical Summary ---
Author Organization [facility] Address [address] Andrade: Epic Prelude ADT [place]DS [address] Care Team Providers Care Search Engine Marketing Strategist Name Role Phone Unavailable Primary Care Provider Unavailabl e Allergies No known active allergies Medications omeprazole (PriLOSEC) 40 mg Capsule, Delayed Release(E.C.) Take 40 mg by mouth daily. 07/04/2019 Active DM/p-ephed/aceta minoph/doxylam (NYQUIL ORAL) Take 30 mL by mouth 1 time daily as needed. 07/04/2019 Active Active Problems Problem Noted Date Diagnosed Date Spasm of muscle of lower back 12/24/2024 Social History Tobacco Use Types Packs/Day Years Used Date Smoking Tobacco: Every Day Cigarettes Smokeless Tobacco: Never Tobacco Cessation:Ready to Q uit: Not Asked; Counseling Given: Not Answered Alcohol Use Standard Drinks/Week Comments Yes 0 (1 standard drink = 0.6 oz pur e alcohol) Feeling Safe Answer Date Recorded Are you in a relationship wi th someone who hurts you emotionally and/or physically? 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 Gender Identity Not on file Sexual Orientation Not on file Last Filed Vital Signs Vital Sign Reading Time Taken Comments Blood Pressure 139/96 12/24/2024 5:00 PM CDT Pulse 72 12/24/2024 5:00 PM CDT Temperature 36.7 C (98.1 F) 12/24/2024 3:48 PM CDT Respiratory Rate 18 12/24/2024 3:48 PM CDT Oxygen Saturation 99% 12/24/2024 5:00 PM CDT Inhaled Oxygen Concentration - - Weight 114 kg (251 lb 6.4 oz) 12/24/2024 3:48 PM CDT Height 175.3 cm (5' 9 ) 12/24/2024 3:48 PM CDT Body Mass Index 37.13 12/24/2024 3:48 PM CDT Plan of Treatment Health Maintenance Due Date Last Done Comments Pre-Diabetes and Diabetes Screening 1980 DTAP/TDAP/TD VACCINES (1 - Tdap) 02/05/1999 HEPATITIS B VACCINES (1 of 3 - 19+ 3-dose series) 03/1999 COLORECTAL SCREENING 02/05/2025 Colorectal Cancer Screening 02/05/2025 FIT-DNA Q 3 years 02/05/2025 FIT/FOBT Q 1 year 02/05/2025 Flex Sig/CT Colonography Q 5 years 02/05/2025 INFLUENZA VACCINE (#1) 2025 COVID-19 Vaccine (2 - season) 2025 HPV VACCINES (No Doses Required) Completed Insurance [employer] [place] MEDICAID
--- NOTE | 2025-07-23 18:18 | W.ED.SKABFB ---
HPI - Skin/Abscess/Foreign Bdy General: Chief complaint: Skin/Abscess/Foreign Body Stated complaint: Knot on L Butt cheek Painful Time Seen by Provider: 07/23/25 17:57 History of Present Illness: This 45-year-old male presents with a 2-day history of a painful left buttock abscess. The lesion spontaneously drained last night with assistance from a friend who helped express purulent material. Patient describes the drainage as initially bloody, then progressing to a creamy, milkshake-like appearance with blood and pus. The pain was described as unbearable during attempts at manual drainage, requiring multiple attempts with rest periods. Patient reports associated fever with chills occurring primarily at nighttime when lying down, but denies daytime fevers. He has been taking ibuprofen for fever reduction. Patient has a significant history of recurrent abscesses since being bitten by a spider in [id number] in the same general area, noting visible skin discoloration from the original bite. He reports that whenever he develops a cold or any infection, he develops similar large bumps that he typically manages by draining, applying topical antibiotic ointment, and keeping covered. Patient recently completed a course of antibiotics and expresses concern about developing this infection so soon after antibiotic treatment. The current abscess was not easily accessible for self-drainage, requiring assistance. Patient applied a clean bandage after drainage and presents for further evaluation and management. Related Data Previous Rx's ?Medication ?Instructions ?Recorded ondansetron 8 mg disintegrating 8 mg PO .q6 PRN nausea and 11/24/23 tablet vomiting #14 tabs tamsulosin 0.4 mg capsule (Flomax) 0.4 mg PO DAILY #30 caps 11/24/23 amoxicillin 875 mg-potassium 1 tab PO BID #14 tabs 07/23/25 clavulanate 125 mg tablet doxycycline hyclate 100 mg tablet 100 mg PO BID 7 days #14 tabs 07/23/25 hydrocodone 5 mg-acetaminophen 325 1 tab PO Q6H PRN pain #7 tabs 07/23/25 mg tablet Allergies Allergy/AdvReac Type Severity Reaction Status Date / Time No Known Allergies Allergy Verified 07/23/25 17:54 PFS ED PFSH: Medical History No pertinent past medical history Surgical History No pertinent past surgical history Physical Exam Const: COMMON NORMALS: no acute distress GENERAL APPEARANCE: cooperative; not ill appearing and not frail appearing HENMT: COMMON NORMALS: normocephalic, atraumatic and Normal external nose present HEAD & SCALP: normocephalic and atraumatic FACE & SINUS: normal facial exam and face symmetric NOSE: Normal external nose present Eye: COMMON NORMALS: Equal, round and reactive pupils present and EOMs intact bilaterally PUPIL: Yes Equal, round and reactive pupils present Neck/C-Spine: GENERAL: Yes trachea midline Chest: CHEST: Yes Symmetrical chest wall rise Resp: COMMON NORMALS: normal respiratory effort, No retractions and No use of accessory muscles Back/Pelvis: OTHER: Examination of the posterior pelvis reveals a 5 cm area of induration with fluctuance to the mid left buttock there is a small puncture wound area in the center without significant drainage. Area is tender. No streaking Extremity: COMMON NORMALS: no pedal edema Neuro: PINO COMA SCALE: document GCS findings Pino coma scale eye opening: Spontaneous Pino coma scale verbal response: Orientated Pino coma scale motor response: Obey commands Dewy Rose coma scale total score: 15 SENSORY EXAM: Yes extremities (intact) Psych: COMMON NORMALS: speech normal SPEECH: Yes normal speech Skin: COMMON NORMALS: no rashes or lesions noted GENERAL SKIN EXAM: no rashes or lesions noted Procedures Abscess I/D Site: lower extremity (buttock) Side (if applicable): left Sedation/analgesia: fentanyl (150mcg) Local Anesthetic: lidocaine 1% and with epi Amount of anesthesia used (mL): 15 Technique: incised with #11 blade Amount of fluid expressed (mL): 12 Irrigation: No Packing used?: plain Complications: other (none) Course Vital Signs: Vital signs: Vital Signs Temperature 98.7 F 07/23/25 17:50 Pulse Rate 96 07/23/25 19:41 Blood Pressure 136/101 07/23/25 19:41 Pulse Oximetry 96 07/23/25 19:41 Oxygen Delivery Me thod Room Air 07/23/25 17:50 MDM - Skin/Abscess/Foreign Bdy Medicial Decision Making Abscess drained without complication. He tolerated well. Packed with ribbon gauze antibiotic coverage for anaerobic anaerobic organisms given the site. He will return for any worsening symptoms No radiology studies performed this visit Discharge Plan Discharge Patient Disposition: Home Clinical Impression: Abscess of skin or subcutaneous tissue Qualifiers: Site of cutaneous abscess: buttock Qualified Code(s): L02.31 - Cutaneous abscess of buttock Condition: Stable Prescriptions: New doxycycline hyclate 100 mg tablet 100 mg PO BID 7 Days Qty: 14 0RF amoxicillin-pot clavulanate 875-125 mg tablet 1 tab PO BID Qty: 14 0RF Continued hydrocodone-acetaminophen 5-325 mg tablet 1 tab PO Q6H PRN (Reason: pain) Qty: 7 0RF No Action ondansetron 8 mg tablet,disintegrating 8 mg PO .q6 PRN (Reason: nausea and vomiting) Qty: 14 0RF Flomax 0.4 mg capsule 0.4 mg PO DAILY Qty: 30 0RF Discharge Orders: Discharge ED (Routine); Ordered 07/23/25 Ordered By: Lee Goodwin Patient Instructions: Abscess (ED), Opioid Safety, Pain Management, Patient Portal & Kaylie Instructions Activity Restrictions/Additional Instructions: Leave the packing in for 48 hours, then may remove. Keep bandaged. Antibiotics as directed. Pain medication as needed. You may also take ibuprofen for pain or swelling. 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
[2025-07-23] MEDS: ondansetron 2 mg/ML SDV 2 mL 4 MG IVP (18:29)
[2025-07-23] MEDS: fentaNYL 50 mcg/mL INJ 2mL 150 MCG IVP (18:30)
[2025-07-23] MEDS: lidocaine-epi 1% 20 mL INJ INJECTION (18:56)
[2025-07-23 19:22] VITALS: BP 136/101; PULSE 98; O2SAT 98
[2025-07-23] MEDS: oxyCODONE-APAP 5-325 mg Tablet 2 TAB PO (19:34)
[2025-07-23 19:41] VITALS: BP 136/101; PULSE 96; O2SAT 96
== END 2025-07-23 19:43 | disposition home or self-care (01) ==
PROVIDERS: Emergency Provider Emergency Medicine
DX: L02.31 Cutaneous abscess of buttock (principal)
CPT/HCPCS: 10060; 87075; 96374; 96375; 99284; J2405; J3010; J9999